=== PATIENT | female | born 1940 | race Caucasian/White ===

== ENCOUNTER 2021-01-19 22:49 | Emergency (ER) | payer MEDICARE ==
[~2021-01-19] VITALS: Ht 170.2 cm; Wt 61.0 kg
[~2021-01-19 22:49] MED LIST: ALBU8HFA PO
[2021-01-19 22:50] VITALS: BP 161/95
--- NOTE | 2021-01-19 22:58 | NUR ---
pt denies any pain. no complaints. AAOx1, person. pt calm and cooperative
--- NOTE | 2021-01-19 23:05 | NUR ---
CONTACTED [facility] TO SEE IF THERE WERE ANY MISSING ELDERLY FEMALES. NO ONE HAD BEEN REPORTED BUT BETWEEN THE LIMITED INFORMATION THE PATIENT WAS ABLE TO PROVIDE WE WERE ABLE TO IDENTFIY PT STEVEN GARCIA AKFermin DELANEY, OR STEVEN BROWN - CARLOS EDUARDO JUAN WAS CALLED AT [phone] AND WILL BE ABLE TO COME AND GET HER.
== END 2021-01-19 23:24 | disposition home or self-care (01) ==
LOC: ER 22:49
DX: F03.90 Unspecified dementia, unspecified severity, without behavioral disturbance, psychotic disturbance, mood disturbance, and anxiety (principal)
CPT/HCPCS: 99281

== ENCOUNTER 2021-03-02 07:29 | Emergency (ER) | payer MEDICARE ==
[~2021-03-02] VITALS: Ht 165.1 cm; Wt 70.5 kg
[2021-03-02 08:25] LABS: BASOPHILS % (AUTO) 0.4 % (0-1); EOSINOPHILS # (AUTO) 0.1 X10'3 (0-0.9); HEMATOCRIT 40.7 % (35.0-45.0); HEMOGLOBIN 13.6 g/dl (12.0-16.0); LYMPHOCYTES # (AUTO) 2.4 X10'3 (1.1-4.8); LYMPHOCYTES % (AUTO) 37.3 % (21-51); MEAN CORPUSCULAR HEMOGLOBIN 32.7 PG (27.0-31.0); MEAN CORPUSCULAR HGB CONC 33.4 g/dL (33.0-36.5); MEAN CORPUSCULAR VOLUME 97.9 FL (78-98); MEAN PLATELET VOLUME 9.3 FL (7.4-10.4); MONOCYTES # (AUTO) 0.8 X10'3 (0-0.9); MONOCYTES % (AUTO) 12.9 % (2-12); NEUTROPHILS # (AUTO) 3.2 X10'3 (1.8-7.7); NEUTROPHILS % (AUTO) 48.4 % (42-75); PLATELET COUNT 221 X10'3 (140-440); RED BLOOD COUNT 4.16 X10'6 (4.20-5.60); RED CELL DISTRIBUTION WIDTH 14.1 % (11.5-14.5); WHITE BLOOD COUNT 6.5 X10'3 (4.5-11.0)
--- NOTE | 2021-03-02 08:45 | NUR ---
at bedside .pt using restroom at this time.
[2021-03-02 09:02] VITALS: BP 100/82
[2021-03-02 09:35] LABS: ALANINE AMINOTRANSFERASE 24 U/L (12-78); ALBUMIN 3.3 G/DL (3.4-5.0); ALBUMIN/GLOBULIN RATIO 0.9 (1.1-1.5); ALKALINE PHOSPHATASE 61 IU/L (46-116); ASPARTATE AMINO TRANSFERASE 21 U/L (10-37); BILIRUBIN,TOTAL 0.5 MG/DL (0.1-1.0); BLOOD UREA NITROGEN 23 MG/DL (7-18); CALCIUM 9.2 MG/DL (8.5-10.1); CREATININE 0.96 MG/DL (0.40-0.90); GLUCOSE 76 MG/DL (70-104); TOTAL PROTEIN 6.8 G/DL (6.4-8.2); eGFR 56 ML/MIN
[2021-03-02 09:41] LABS: ANION GAP 11 (8-16); CHLORIDE 103 MMOL/L (99-107); POTASSIUM 3.5 MMOL/L (3.5-5.1); SODIUM 144 MMOL/L (135-145)
--- NOTE | 2021-03-02 10:04 | NUR ---
pt tries to get out of bed ,positioned again in bed,pt at bedside for help ,pt has hx of dementia ,get confused easily.
--- NOTE | 2021-03-02 10:13 | NUR ---
spoke to akhil at [facility] discussed the pt lab results as they were concerned about pt k+ level.
== END 2021-03-02 11:04 | disposition home or self-care (01) ==
LOC: ER 07:30
DX: Z02.89 Encounter for other administrative examinations (principal); F03.90 Unspecified dementia, unspecified severity, without behavioral disturbance, psychotic disturbance, mood disturbance, and anxiety; Z79.899 Other long term (current) drug therapy
CPT/HCPCS: 36415; 80053; 85025; 93005; 99284